=== PATIENT | male | born 1970 | race Caucasian/White ===

== ENCOUNTER → 2017-02-20 | Outpatient (CLI) | payer OTHER ==
[~2017-02-20] MED LIST: KEFLEX500 MG PO; NORCO 7.5-3251 EACH PO
== END ==
LOC: KOH-I 02-19 14:13
DX: M54.9 Dorsalgia, unspecified (principal); M47.892 Other spondylosis, cervical region
CPT/HCPCS: 72050

== ENCOUNTER → 2020-11-02 | Outpatient (CLI) | payer OTHER ==
[~2020-11-02] MED LIST changes: +ADMELOG SO100 UNIT/1 SQ; +ASPIRIN 325MG325 MG PO; +BACTROBAN OINT22 GM EXT; +BASAGLAR K100 UNIT/1 SC; +BENADRYL 25MG C25 MG PO; +CARAFATE 1 GM TA1 GM PO; +CLARITIN10 MG PO; +COMBIVENT RESPIM4 GM INH; +COMPOUND TD; +COZAAR25 MG PO; +FLEXERIL 10 MG10 MG PO; +FLONASE 0.05% N16 GM; +GABAPENTIN300 MG PO; +IMDUR ER TAB 3030 MG PO; +IPRAT-ALBUT 0.5-3 ML INH; +JARDIANCE10 MG PO; +LEVAQUIN500 MG PO; +LIPITOR TAB 1010 MG PO; +LOPRESSOR100 MG PO; +NEXIUM40 MG PO; +NORVASC10 MG PO; +PREDNISONE20 MG PO; +SPIRONOLACTONE25 MG PO; +STARLIX 120 MG120 MG PO; +VITAMIN D32000 UNI1 PO; +ZANTAC 150 MG150 MG PO
== END ==
LOC: HEART 5 07:44
DX: R07.9 Chest pain, unspecified (principal); I49.3 Ventricular premature depolarization; R00.2 Palpitations; R93.1 Abnormal findings on diagnostic imaging of heart and coronary circulation
CPT/HCPCS: 78452; A9502; J2785

== ENCOUNTER 2021-08-20 20:24 | Emergency (ER) | payer OTHER ==
[2021-08-20 21:27] LABS: HEMOGLOBIN 17.5 gm/dl (14.0-17.5); RED BLOOD COUNT 5.26 M/UL (4.20-5.50); WHITE BLOOD COUNT 5.9 K/UL (4.5-11.0)
[2021-08-20 21:49] LABS: BUN/CREATININE RATIO 14 (0-10)
[2021-08-20] MEDS ORDERED: TAMIFLU 75 MG C75 MG PO (23:58)
== END 2021-08-21 00:10 | disposition home or self-care (01) ==
LOC: ER1 20:24
PROVIDERS: Physician Assistant
DX: J10.1 Influenza due to other identified influenza virus with other respiratory manifestations (principal); Z20.822 Contact with and (suspected) exposure to COVID-19
CPT/HCPCS: 80053; 81001; 82550; 82553; 83735; 83874; 84484; 85025; 87086; 93005; 99284; U0002

== ENCOUNTER 2021-08-30 17:52 | Emergency (ER) | payer OTHER ==
[~2021-08-30 17:52] MED LIST changes: +TAMIFLU 75 MG C75 MG PO
[2021-08-30 19:03] LABS: HEMOGLOBIN 18.3 gm/dl (14.0-17.5); RED BLOOD COUNT 5.5 M/UL (4.20-5.50); WHITE BLOOD COUNT 9.6 K/UL (4.5-11.0)
[2021-08-30 19:31] LABS: BUN/CREATININE RATIO 19 (0-10)
[2021-08-30] MEDS ORDERED: HYDROCODON-ACE1 EAC4 PO (22:04)
== END 2021-08-30 22:14 | disposition home or self-care (01) ==
LOC: ER1 17:52
PROVIDERS: Physician Assistant
DX: M25.522 Pain in left elbow (principal); E11.9 Type 2 diabetes mellitus without complications; I10 Essential (primary) hypertension; J44.9 Chronic obstructive pulmonary disease, unspecified; F17.200 Nicotine dependence, unspecified, uncomplicated
CPT/HCPCS: 71045; 73080; 80053; 82550; 82553; 83874; 83880; 84484; 85025; 93005; 99284

== ENCOUNTER 2021-09-29 01:03 | Emergency (ER) | payer OTHER ==
[~2021-09-29 01:03] MED LIST changes: +HYDROCODON-ACE1 EAC4 PO
[2021-09-29 02:04] LABS: HEMOGLOBIN 18.1 gm/dl (14.0-17.5); RED BLOOD COUNT 5.43 M/UL (4.20-5.50); WHITE BLOOD COUNT 11.1 K/UL (4.5-11.0)
[2021-09-29 02:32] LABS: BUN/CREATININE RATIO 17 (0-10)
== END 2021-09-29 03:40 | disposition home or self-care (01) ==
LOC: ER1 01:03
PROVIDERS: Family Medicine
DX: R53.1 Weakness (principal); R53.83 Other fatigue
CPT/HCPCS: 71046; 80053; 80307; 81001; 82550; 82553; 83874; 84484; 85025; 93005; 99285

== ENCOUNTER → 2021-10-24 | Outpatient (CLI) | payer MEDICARE, OTHER | LOC: KOH-I 09:15 | DX: R26.9 Unspecified abnormalities of gait and mobility (principal); M47.817 Spondylosis without myelopathy or radiculopathy, lumbosacral region | CPT/HCPCS: 70450; 72148 ==

== ENCOUNTER → 2021-11-07 | Outpatient (CLI) | payer OTHER | LOC: ECHO 12:10 → MRI 13:00 | DX: R53.1 Weakness (principal); I63.9 Cerebral infarction, unspecified; R94.02 Abnormal brain scan | CPT/HCPCS: 70551; 93880 ==

== ENCOUNTER → 2021-11-27 | Outpatient (CLI) | payer OTHER | LOC: HEART 5 14:13 | DX: I63.9 Cerebral infarction, unspecified (principal) ==